=== PATIENT | female | born 1960 | race Caucasian/White ===

== ENCOUNTER 2017-12-21 21:36 | Emergency (ER) | payer OTHER ==
[~2017-12-21] VITALS: Ht 172.7 cm; Wt 82.6 kg
--- NOTE | 2017-12-21 21:36 | NUR ---
BBSELF FROM HOME C/C BRONCHITIS [id number], COMPLETED ZPACK 2.5 WEEKS AGO. VSS SAUD CUTE DISRTESS NOTED AT THIS TIME. A/OX3 ABLE TO MAKE NEEDS KNOWN. SKIN INTACT AND WARM. WILL CONTINUE TO MONITOR FOR ANY CHANGES DURING THE SHIFT.
--- NOTE | 2017-12-21 21:37 | NUR ---
ER MD MARTINEZ AT BEDSIDE
[2017-12-21] MEDS ORDERED: predniSONE 20 MG TABLET PO ONE (22:30)
[2017-12-21] MEDS ORDERED: LEVOFLOXACIN 750 MG /D5W 150ML 150 ML IV ONE (23:00)
[2017-12-21] MEDS ORDERED: AZITHROMYCIN 250 MG TABLET PO ONE (23:00)
[2017-12-21] MEDS ORDERED: PIPERACILLIN /TAZOBACTAM 3.375 G in IV D5W 50 ML IV ONE (23:30)
[2017-12-21] MEDS ORDERED: predniSONE 20 MG TABLET ONE (23:41)
[2017-12-21] MEDS ORDERED: PIPERACILLIN /TAZOBACTAM 3.375 G VIAL IV ONE (23:41)
[2017-12-21 23:46] LABS: BASOPHILS # (AUTO) 0.1 /CMM (0.0-0.2); BASOPHILS % (AUTO) 0.6 % (0.0-2.0); EOSINOPHILS % (AUTO) 2.1 % (0.0-6.0); HEMATOCRIT 41 % (33-45); HEMOGLOBIN 13.6 g/dL (11.5-14.8); LYMPHOCYTES # (AUTO) 1.6 /CMM (0.8-4.8); LYMPHOCYTES % (AUTO) 17.6 % (20.0-44.0); MEAN CORPUSCULAR HEMOGLOBIN 30 PG (26.0-33.0); MEAN CORPUSCULAR HGB CONC 33 g/dl (31.0-36.0); MEAN CORPUSCULAR VOLUME 91 fL (82-100); MONOCYTES # (AUTO) 0.6 /CMM (0.1-1.30); NEUTROPHILS # (AUTO) 6.5 /CMM (1.8-8.9); NEUTROPHILS % (AUTO) 72.7 % (43.0-81.0); PLATELET COUNT (AUTO) 367 /CMM (150-450); RDW COEFFICIENT OF VARIATION 12.7 (11.5-15.0); RED BLOOD CELL COUNT(AUTO) 4.53 MIL/uL (4.0-5.2); WHITE BLOOD COUNT (AUTO) 8.9 K/uL (4.3-11.0)
[2017-12-21 23:55] LABS: CALCIUM, SERUM 9.9 mg/dL (8.5-10.1); CARBON DIOXIDE 27 mmol/L (21-32); CHLORIDE 100 mmol/L (98-107); CREATININE 0.7 mg/dL (0.6-1.3); GLUCOSE 97 mg/dL (74-106); POTASSIUM 3.7 mmol/L (3.5-5.1); SODIUM SERUM 137 mmol/L (136-145); UREA NITROGEN, BLOOD 14 mg/dL (7-18)
[2017-12-22 00:04] VITALS: BP 119/78
[2017-12-22 00:04] LABS: TROPONIN I < 0.017 ng/mL (0.00-0.056)
[2017-12-22 00:08] LABS: ALANINE AMINOTRANSFERASE 16 U/L (12-78); ALBUMIN 3.9 g/dL (3.4-5.0); ALKALINE PHOSPHATASE 89 U/L (46-116); ASPARTATE AMINOTRANSFERASE 12 U/L (15-37); B-TYPE NATRIURETIC PEPTIDE 97 PG/ML (0-125); BILIRUBIN,DIRECT 0.2 mg/dL (0.0-0.2); TOTAL PROTEIN, SERUM 8.3 g/dL (6.4-8.2)
[2017-12-23] MEDS ORDERED: ASPI-1169 PO (02:42)
[2017-12-23] MEDS ORDERED: GLIP10TA11 PO (02:42)
[2017-12-23] MEDS ORDERED: SITA100T PO (02:42)
[2017-12-23] MEDS ORDERED: METF10004 PO (02:42)
[2017-12-23] MEDS ORDERED: ATOR80TA PO (02:42)
[2017-12-23] MEDS ORDERED: CITA10TA17 PO (02:42)
[2017-12-23] MEDS ORDERED: CARV3.12 PO (07:46)
[2017-12-23] MEDS ORDERED: LISI10TA5 PO (07:46)
== END 2017-12-22 00:04 | disposition home or self-care (01) ==
LOC: ER 21:40
DX: J18.1 Lobar pneumonia, unspecified organism (principal); I10 Essential (primary) hypertension; I25.2 Old myocardial infarction; E11.9 Type 2 diabetes mellitus without complications; Z88.5 Allergy status to narcotic agent; Z88.8 Allergy status to other drugs, medicaments and biological substances; Z87.891 Personal history of nicotine dependence
CPT/HCPCS: 36415; 71045; 80048; 80076; 83880; 84484; 85025; 87040 ×2; 93005; 96365; 99285; A4606; J2543 ×2; J7060; J7512; Z7610

== ENCOUNTER 2017-12-22 21:06 | Inpatient (IN) | payer OTHER ==
[~2017-12-22] VITALS: Ht 172.7 cm; Wt 82.6 kg
[2017-12-23] MEDS ORDERED: IOHEXOL-350 100 ML VIAL IV ONE (00:15)
[2017-12-23] MEDS ORDERED: IV NS 0.9% 250 ML IV ONE (00:16)
--- NOTE | 2017-12-23 00:17 | NUR ---
PT WAS SEEN YESTERDAY AND DX WITH PNEUMONIA. PT TOLD TO GET CT AND ANTIBIOTICS. PT IS AAOX4. NAD NOTED. PT DENIES SOB, NVD. WAITING FOR MD DE DIOS
--- NOTE | 2017-12-23 00:20 | NUR ---
INITIATED IV RIGHT UPPER ARM 18G. PLACED ON SALINE LOCK
--- NOTE | 2017-12-23 00:28 | NUR ---
PT BROUGHT BY RADIOLOGIST FOR CT
[2017-12-23] MEDS ORDERED: PIPERACILLIN /TAZOBACTAM 3.375 G in IV D5W 50 ML IV ONE (00:30)
--- NOTE | 2017-12-23 00:45 | NUR ---
PT RETURNED FROM CT
[2017-12-23] MEDS ORDERED: PIPERACILLIN /TAZOBACTAM 3.375 G VIAL IV ONE ×2 (01:21→05:22)
[2017-12-23] MEDS ORDERED: IV NS 0.9% 1,000 ML IV PRN (02:19)
[2017-12-23] MEDS ORDERED: Z GUARD REMEDY 2 OZ OINT TP PRN (02:30)
[2017-12-23] MEDS ORDERED: MAG HYDROX/AL HYDROX/SIMETH 30 ML UDC PO PRN (02:30)
[2017-12-23] MEDS ORDERED: HYDROCODONE/APAP 5/325MG 1 EACH TABLET PO PRN (02:30)
[2017-12-23] MEDS ORDERED: MAGNESIUM HYDROXIDE 30 ML UDC PO PRN (02:30)
[2017-12-23] MEDS ORDERED: ONDANSETRON HCL/PF 4 MG/2 ML VIAL IVP PRN (02:30)
--- NOTE | 2017-12-23 02:33 | NUR ---
GAVE REPORT TO KRYS FOR CARI
[2017-12-23] MEDS ORDERED: ASPI-1169 PO (02:42)
[2017-12-23] MEDS ORDERED: GLIP10TA11 PO (02:42)
[2017-12-23] MEDS ORDERED: SITA100T PO (02:42)
[2017-12-23] MEDS ORDERED: METF-442 PO (02:42)
[2017-12-23] MEDS ORDERED: ATOR80TA PO (02:42)
[2017-12-23] MEDS ORDERED: CITA10TA17 PO (02:42)
[2017-12-23 03:00] VITALS: BP 102/62
--- NOTE | 2017-12-23 03:08 | NUR ---
TRANSFERRED PT TO TELE PER [facility] [employer]
[2017-12-23 03:30] VITALS: BP 102/62
[2017-12-23 04:00] VITALS: BP 115/62
[2017-12-23] MEDS: PIPERACILLIN /TAZOBACTAM 3.375 G in IV D5W 50 ML IV SCH ×4 (06:27→23:22)
[2017-12-23 07:06] LABS: ALBUMIN 3.3 g/dL (3.4-5.0); BILIRUBIN,DIRECT 0.1 mg/dL (0.0-0.2); BILIRUBIN,TOTAL 0.5 mg/dL (0.2-1.0); CALCIUM, SERUM 8.6 mg/dL (8.5-10.1); CREATININE 0.9 mg/dL (0.6-1.3); MAGNESIUM 1.9 mg/dL (1.8-2.4); PHOSPHORUS 4.2 mg/dL (2.5-4.9); POTASSIUM 3.7 mmol/L (3.5-5.1)
[2017-12-23 07:17] LABS: THYROID STIMULATING HORMONE 5.379 uIU/mL (0.358-3.74)
[2017-12-23 07:27] LABS: INR 0.92 (0.87-1.13)
[2017-12-23] MEDS ORDERED: LISI10TA5 PO (07:46)
[2017-12-23] MEDS ORDERED: CARV3.12 PO (07:46)
[2017-12-23 08:00] VITALS: BP 92/60
[2017-12-23 08:02] LABS: BASOPHILS % (AUTO) 0.3 % (0.0-2.0); EOSINOPHILS % (AUTO) 1.2 % (0.0-6.0); HEMATOCRIT 38 % (33-45); LYMPHOCYTES # (AUTO) 1.5 /CMM (0.8-4.8); LYMPHOCYTES % (AUTO) 19.3 % (20.0-44.0); MEAN CORPUSCULAR HEMOGLOBIN 29 PG (26.0-33.0); MEAN CORPUSCULAR HGB CONC 32 g/dl (31.0-36.0); MEAN CORPUSCULAR VOLUME 91 fL (82-100); MONOCYTES # (AUTO) 0.6 /CMM (0.1-1.30); MONOCYTES % (AUTO) 8.3 % (2.0-12.0); NEUTROPHILS # (AUTO) 5.5 /CMM (1.8-8.9); NEUTROPHILS % (AUTO) 70.9 % (43.0-81.0); PLATELET COUNT (AUTO) 310 /CMM (150-450); RDW COEFFICIENT OF VARIATION 12.9 (11.5-15.0); RED BLOOD CELL COUNT(AUTO) 4.15 MIL/uL (4.0-5.2); WHITE BLOOD COUNT (AUTO) 7.8 K/uL (4.3-11.0)
--- NOTE | 2017-12-23 08:06 | NUR ---
LEFT MESSAGE FOR DOCTOR SAVANNAH CONSULT WITH ANSWERING SERVICE. ISAIAS PENA RN
--- NOTE | 2017-12-23 08:09 | NUR ---
LEFT MESSAGE WITH DOCTOR CÉSAR'S OFFICE FOR CONSULT.
[2017-12-23] MEDS: PANTOPRAZOLE 40 MG TABLET.DR PO SCH (09:05)
[2017-12-23] MEDS ORDERED: *INSULIN REGULAR(HUMULIN R)HUM 100 UNIT/ML VIAL SQ PRN (11:00)
[2017-12-23] MEDS ORDERED: DEXTROSE 50%-WATER 50 ML DISP.SYRIN IV PRN ×2 (11:00)
[2017-12-23] MEDS ORDERED: LORAZEPAM 1 MG TABLET PO PRN (11:00)
[2017-12-23] MEDS ORDERED: INSULIN REGULAR, HUMAN 100 UNIT/ML 3 ML VIAL SQ PRN (11:00)
[2017-12-23] MEDS: BLOOD SUGAR DIAGNOSTIC 1 EACH STRIP VI SCH ×3 (11:53→23:30)
[2017-12-23] MEDS: INSULIN REGULAR, HUMAN 100 UNIT/ML 3 ML VIAL SQ PRN (11:57)
[2017-12-23] MEDS ORDERED: BLOOD SUGAR DIAGNOSTIC 1 EACH STRIP VI SCH (12:00)
[2017-12-23 16:02] VITALS: BP 102/68
[2017-12-23] MEDS: METFORMIN 500 MG TABLET PO SCH (17:00)
[2017-12-23] MEDS: ACETAMINOPHEN 325 MG TABLET PO PRN (17:37)
[2017-12-23] MEDS: CARVEDILOL 3.125 MG TABLET PO SCH (17:37)
--- NOTE | 2017-12-23 19:10 | NUR ---
Handoff to night nurse, discussed plan for discharge 12/24/17.
--- NOTE | 2017-12-23 19:30 | NUR ---
MS/RN RECEIVE PATIENT AWAKE, ALERT, ORIENTED, COMFORTABLE, NO C/O PAIN, NO DISTRESS NOTED, PLAN OF CARE DISCUSSED, VERBALIZED UNDERSTANDING, CALL LIGHT IN REACH. WILL MONITOR.
[2017-12-23 20:00] VITALS: BP 104/61
--- NOTE | 2017-12-24 01:22 | NUR ---
MS/RN PATIENT IS SLEEPING, AROUSABLE, APPEAR COMFORTABLE, NO DISTRESS NOTED, ALL NEEDS ATTENDED AT THIS TIME, ENDORSED TO NEXT RN FOR CONTINUITY OF CARE.
--- NOTE | 2017-12-24 01:31 | NUR ---
MS RN NOTES REPORT RECEIVED FROM STEWART. PT IN BED COMFORTABLY SLEEPING AND AROUSABLE, NO S/S OF PAIN OR DISTRESS NOTED, ALL NEEDS ATTENDED TO AT THIS TIME, WILL CONTINUE TO MONITOR
[2017-12-24] MEDS: PIPERACILLIN /TAZOBACTAM 3.375 G in IV D5W 50 ML IV SCH ×3 (05:23→17:33)
[2017-12-24] MEDS: ACETAMINOPHEN 325 MG TABLET PO PRN ×2 (05:53→22:04)
--- NOTE | 2017-12-24 06:00 | NUR ---
MS RN CLOSING NOTES PT IN BED AT LOWEST AND LOCKED POSITION WITH SIDE RAILS UP X2 RESTING COMFORTABLY, A/O X3, NO S/S OF PAIN OR DISTRESS NOTED, RIGHT FA IV REMOVED AND REPLACED WITH LEFT HAND IV THAT IS PATENT AND INTACT RUNNING IVF, RECENTLY GIVEN TYELNOL AT 0553, SAFETY PRECAUTIONS IN PLACE, ALL NEEDS ATTEDED TO, CALL LIGHT WITHIN REACH, WILL CONTINUE TO MONITOR
--- NOTE | 2017-12-24 07:15 | NUR ---
MSRN OPENING NOTES. PT RECEIVED A&0X3, TOLERATING ROOM AIR WITHOUT RESPIRATORY DISTRESS. PT DENIES PAIN. PT WITH IVC AT L HAND G#22 SALINE FLUSH PATENT. PT BED IN LOWEST LOCKED POSITION WITH HANDRAILSX2 AND CALL LOUIE WITHIN REACH. PT BRIEFED ON TODAY'S POC AND IS WITHOUT CONCERN OR COMPLAIN AT THIS TIME.
[2017-12-24 07:29] LABS: CALCIUM, SERUM 9.1 mg/dL (8.5-10.1); CREATININE 0.8 mg/dL (0.6-1.3); MAGNESIUM 1.8 mg/dL (1.8-2.4); PHOSPHORUS 4.4 mg/dL (2.5-4.9); POTASSIUM 3.9 mmol/L (3.5-5.1)
[2017-12-24] MEDS: PANTOPRAZOLE 40 MG TABLET.DR PO SCH (07:30)
[2017-12-24 07:31] LABS: EOSINOPHILS % (AUTO) 7.4 % (0.0-6.0); HEMATOCRIT 36 % (33-45); HEMOGLOBIN 11.9 g/dL (11.5-14.8); LYMPHOCYTES # (AUTO) 1.2 /CMM (0.8-4.8); LYMPHOCYTES % (AUTO) 16.9 % (20.0-44.0); MEAN CORPUSCULAR HEMOGLOBIN 31 PG (26.0-33.0); MEAN CORPUSCULAR HGB CONC 33 g/dl (31.0-36.0); MEAN CORPUSCULAR VOLUME 92 fL (82-100); MONOCYTES # (AUTO) 0.4 /CMM (0.1-1.30); MONOCYTES % (AUTO) 6.1 % (2.0-12.0); NEUTROPHILS % (AUTO) 69.6 % (43.0-81.0); PLATELET COUNT (AUTO) 269 /CMM (150-450); RDW COEFFICIENT OF VARIATION 12.9 (11.5-15.0); WHITE BLOOD COUNT (AUTO) 7.2 K/uL (4.3-11.0)
[2017-12-24 08:00] VITALS: BP 118/72
[2017-12-24] MEDS: METFORMIN 500 MG TABLET PO SCH ×2 (09:00→17:00)
[2017-12-24] MEDS: CARVEDILOL 3.125 MG TABLET PO SCH ×2 (09:58→16:59)
[2017-12-24] MEDS: CITALOPRAM HYDROBROMIDE 10 MG TABLET PO SCH (10:00)
[2017-12-24] MEDS: BLOOD SUGAR DIAGNOSTIC 1 EACH STRIP VI SCH ×4 (10:06→22:05)
[2017-12-24] MEDS: LISINOPRIL (10MG) 10 MG TABLET PO SCH (10:06)
[2017-12-24] MEDS: INSULIN REGULAR, HUMAN 100 UNIT/ML 3 ML VIAL SQ PRN ×3 (11:00→21:56)
[2017-12-24 16:00] VITALS: BP 112/71
[2017-12-24] MEDS: FERROUS SULFATE (325 MG) 325 MG/TAB TABLET PO SCH (17:32)
[2017-12-24] MEDS: ATORVASTATIN 40 MG TABLET PO SCH (17:32)
--- NOTE | 2017-12-24 18:37 | NUR ---
MSRN CLOSING NOTES. PT REMAINS A&0X3, TOLERATING ROOM AIR WITHOUT RESPIRATORY DISTRESS. PT DENIES PAIN. PT WITH IVC AT L HAND G#22 SALINE FLUSH PATENT. PT TO BHE NPO FROM MIDNIGHT R/T PROCEDURE. PT BED IN LOWEST LOCKED POSITION WITH HANDRAILSX2 AND CALL LOIUE WITHIN REACH. ALL DAY NURSE DUTIES ATTENDED TO AND PT IS WITHOUT CONCERN OR COMPLAIN AT THIS TIME. WILL ENDORSE TO NIGHT NURSE AT BEDSIDE FOR CARI.
--- NOTE | 2017-12-24 19:25 | NUR ---
rn ms opening notes received patient in room/bed, awake alert and oriented x3-4,respirations even and unlabored with equal rise and fall of chest , denies any sob at this time, o2 offered patient does not feel she needs it at this time, spo2 wnl denies any pain or discomfort at this time, no apparent distress present, iv site to left hand #22 sl. noted intact and patent, no redness, no infiltration present. oriented to staff and call light, call light kept within reach, safety precautions in place bed low and locked, consents signed by patient for procedure on 12/25/17. patient aware of npo status. fluids/snacks offered. all needs attended at this time, patient request to have door closed, will continue to monitor.
[2017-12-24 20:00] VITALS: BP 111/71
--- NOTE | 2017-12-24 22:04 | NUR ---
rn ms notes patient complaint of pain to chest area patient states " pain because of pna,cough " pain medication offered , patient agreed to take tylenol prn given and ordered will continue to monitor. blood sugar of 142 2 units given as per sliding scale snack provided patient seems to be worried about decrease in blood sugar and npo status at midnight orange sugar free jello, strawberry jello, oj, and applesauce offered and at bedside. patient states " she ate almonds". will continue to monitor for any changes.
[2017-12-24] MEDS: *INSULIN REGULAR(HUMULIN R)HUM 100 UNIT/ML VIAL SQ PRN (22:43)
--- NOTE | 2017-12-24 22:45 | NUR ---
rn ms notes clarification of barcode for insulin undid ac and rescanned hs dose 142 blood sugar 2 units per sliding scale.
[2017-12-25] MEDS: PIPERACILLIN /TAZOBACTAM 3.375 G in IV D5W 50 ML IV SCH ×5 (00:20→23:15)
[2017-12-25] MEDS: ALBUTEROL FS 2.5 MG/0.5 ML VIAL.NEB NEB PRN ×2 (02:46→16:09)
--- NOTE | 2017-12-25 02:46 | NUR ---
rn ms notes patient had episode of cough with scant amount of clear sputum , offered albuterol patient agreed. rt called for treatment will continue to monitor
--- NOTE | 2017-12-25 03:15 | NUR ---
rn ms notes noted albuterol rt tx effective, cough is relived, per patient states she feels better.
--- NOTE | 2017-12-25 04:35 | NUR ---
rn ms notes inactivated sepsis reassessment patient was admitted for acute respiratory failure and PNA, metastatic lung cancer. assessed orders no fluids for sepsis given
[2017-12-25] MEDS: BLOOD SUGAR DIAGNOSTIC 1 EACH STRIP VI SCH ×4 (06:28→22:00)
--- NOTE | 2017-12-25 06:29 | NUR ---
rn ms notes blood sugar taken 141, no insulin given patient currently is npo for am procedure.
--- NOTE | 2017-12-25 07:08 | NUR ---
RN OPENING NOTES RECEIVED PATIENT IN BED RESTING, A/OX3, ABLE TO VERBALIZE NEEDS. NO ACUTE DISTRESS, NO SOB NOTED. DENIED PAIN OR DISCOMFORT AT THIS TIME. KEPT NPO DUE TO A SCHEDULED PROCEDURE FOR TODAY. KEPT PATIENT SAFE AND COMFORTABLE. BED IN LOW/LOCKED POSITION, SIDERAILS UPX2, CALL LIGHT IN REACH. BRIEFED ON TODAY'S POC. WILL CONTINUE TO MONIOTR ACCORDINGLY.
--- NOTE | 2017-12-25 07:30 | NUR ---
rn ms closing notes patient in bed awake alert and oriented x 4, respirations even and unlabored with equal rise and fall of chest , denies any pain or discomfort at this, noted iv site to left hand not patent, noted with slight swelling, no redness to site. site removed,applied ice and elevated, attempted to insert x 2, endorse to next shift to continue remaining iv zosyn, and insert new iv site. all needs attended, call light kept within reach, npo for scheduled procedure.
[2017-12-25 07:54] LABS: INR 0.96 (0.87-1.13)
[2017-12-25 08:00] VITALS: BP_SYST 119; BP_DIAS 57; BP_DIAS 67
--- NOTE | 2017-12-25 08:00 | NUR ---
RN NOTES NEW IV ON RIGHT FOREARM GAUGE 24,INTACT AND PATENT. INSERTED BY ROSANNE WELCH
[2017-12-25] MEDS: METFORMIN 500 MG TABLET PO SCH ×2 (09:00→17:00)
[2017-12-25] MEDS: PANTOPRAZOLE 40 MG TABLET.DR PO SCH (09:16)
[2017-12-25] MEDS: CARVEDILOL 3.125 MG TABLET PO SCH ×2 (09:17→17:34)
[2017-12-25] MEDS: CITALOPRAM HYDROBROMIDE 10 MG TABLET PO SCH (09:17)
[2017-12-25] MEDS: FERROUS SULFATE (325 MG) 325 MG/TAB TABLET PO SCH ×2 (09:18→17:30)
[2017-12-25] MEDS: LISINOPRIL (10MG) 10 MG TABLET PO SCH (09:18)
[2017-12-25] MEDS: ACETAMINOPHEN 325 MG TABLET PO PRN ×2 (09:22→09:27)
--- NOTE | 2017-12-25 13:00 | NUR ---
RN NOTES CT NEEDLE BIOPSY WAS CANCELLED PER DR LINDSEY. PER DR LINDSEY, FOLLOW UP WITH OUTSIDE SALES PROFESSIONAL FOR BRONCHOSCOPY. NOTIFIED [employer].
[2017-12-25 16:00] VITALS: BP 122/77
[2017-12-25] MEDS: ATORVASTATIN 40 MG TABLET PO SCH (17:31)
[2017-12-25] MEDS: INSULIN REGULAR, HUMAN 100 UNIT/ML 3 ML VIAL SQ PRN (17:36)
--- NOTE | 2017-12-25 19:10 | NUR ---
RN INITIAL NOTES Received patient, AA/OX4, on supine position, with patent peripheral IV line RFA G#24 SL. No s/s of discomfort made. Able to communicate needs. Kept door close per patient request. Will monitor accordingly.
--- NOTE | 2017-12-25 19:45 | NUR ---
RN CLOSING NOTES PATIENT IN STABLE CONDITION. ALL NEEDS ATTENDED AND PROVIDED. ALL DUE MEDS GIVEN ORDERED. KEPT PATIENT SAFE AND COMFORTABLE. BED IN LOW/LOCKED POSITION, CALL LIGHT IN REACH. ENDORSED TO NIGHT RN FOR CARI.
[2017-12-25 20:00] VITALS: BP 112/64
--- NOTE | 2017-12-25 22:00 | NUR ---
MS RN NOTES Routine capillary blood sugar checked, 198mg/dl. Patient claimed she had snacks few minutes ago and she eats small frequent meals. Patient refused to take insulin as she claimed the blood sugar result is not accurate due to her eating anytime she wants. Explained the risk of not taking insulin and the timing of blood sugar checked. Patient verbalized understanding but insist to refused insulin at this time. Will continue to monitor accordingly.
[2017-12-26] MEDS: PIPERACILLIN /TAZOBACTAM 3.375 G in IV D5W 50 ML IV SCH ×3 (05:03→17:18)
[2017-12-26] MEDS: PANTOPRAZOLE 40 MG TABLET.DR PO SCH (06:34)
[2017-12-26] MEDS: BLOOD SUGAR DIAGNOSTIC 1 EACH STRIP VI SCH ×4 (06:35→22:16)
--- NOTE | 2017-12-26 06:46 | NUR ---
MS RN CLOSING NOTES Patient awake on left side lying position. With patent peripheral IV line RF G#24, SL, no signs of infiltration noted. Able to ambulate and do ADLs independently. Patient claimed she had intermittent slept the whole night. Capillary blood glucose check at this time, 145mg/dl, refused to take insulin, per patient its not that high and she will have oral diabetic meds soon. All due meds given, no ASE noted. Kept comfortable, all needs attended. No new complaints made. Endorsed to the next shift.
--- NOTE | 2017-12-26 07:30 | NUR ---
MS RN OPENING NOTES RECEIVED PT SITTING UPRIGHT IN BED. PT IS A/O X4, AFEBRILE. RESPIRATIONS ARE EVEN AND UNLABORED, NOT IN ANY ACUTE DISTRESS AT THIS TIME. PT DENIES SOB, N/V. IV SITE INTACT TO RFA, NO INFILTRATION NOTED. DRESSING KEPT CLEAN AND DRY. SAFETY MEASURES ARE IN PLACE. INSTRUCTED PT TO USE CALL LIGHT WHEN ASSISTANCE IS NEEDED, CALL LIGHT IS LEFT WITHIN REACH. WILL CONTINUE TO MONITOR THROUGHOUT SHIFT FOR CONTINUITY OF CARE
[2017-12-26 08:00] VITALS: BP_SYST 104; BP_SYST 109; BP_DIAS 70
[2017-12-26 08:11] LABS: CALCIUM, SERUM 9.1 mg/dL (8.5-10.1); CREATININE 0.8 mg/dL (0.6-1.3); MAGNESIUM 1.7 mg/dL (1.8-2.4); PHOSPHORUS 3.6 mg/dL (2.5-4.9); POTASSIUM 3.8 mmol/L (3.5-5.1)
[2017-12-26] MEDS: CITALOPRAM HYDROBROMIDE 10 MG TABLET PO SCH (08:42)
[2017-12-26] MEDS: FERROUS SULFATE (325 MG) 325 MG/TAB TABLET PO SCH ×2 (08:42→17:13)
[2017-12-26] MEDS: CARVEDILOL 3.125 MG TABLET PO SCH ×2 (08:43→17:00)
[2017-12-26] MEDS: LISINOPRIL (10MG) 10 MG TABLET PO SCH (08:43)
[2017-12-26] MEDS: METFORMIN 500 MG TABLET PO SCH ×2 (08:45→17:00)
[2017-12-26 09:05] LABS: HEMATOCRIT 37 % (33-45); HEMOGLOBIN 13.1 g/dL (11.5-14.8); LYMPHOCYTES % (AUTO) 15.1 % (20.0-44.0); MEAN CORPUSCULAR HEMOGLOBIN 31 PG (26.0-33.0); MEAN CORPUSCULAR HGB CONC 36 g/dl (31.0-36.0); MEAN CORPUSCULAR VOLUME 87 fL (82-100); MONOCYTES % (AUTO) 7.1 % (2.0-12.0); NEUTROPHILS % (AUTO) 75.3 % (43.0-81.0); PLATELET COUNT (AUTO) 287 /CMM (150-450); RDW COEFFICIENT OF VARIATION 12.7 (11.5-15.0); RED BLOOD CELL COUNT(AUTO) 4.25 MIL/uL (4.0-5.2); WHITE BLOOD COUNT (AUTO) 7.3 K/uL (4.3-11.0)
[2017-12-26 09:06] LABS: BASOPHILS % (AUTO) 0.5 % (0.0-2.0)
--- NOTE | 2017-12-26 09:30 | NUR ---
PT SEEN AND EXAMINED BY DR. NUÑEZ W/ ORDERS FOR SCHEDULED BRONCOSCOPY ON MONDAY AT 2PM. PT MADE AWARE. PT WILL BE NPO POST MIDNIGHT (MONDAY NIGHT) AND START D5NS @80ML/HR POST MIDNIGHT. ORDERS READ BACK AND VERIFIED. NOTED AND CARRIED OUT.
[2017-12-26] MEDS ORDERED: Magnesium 1GM/D5W 100ML PREMIX 100 ML IV SCH (10:00)
[2017-12-26] MEDS: Magnesium 1GM/D5W 100ML PREMIX 100 ML IV SCH ×2 (10:30→11:33)
[2017-12-26] MEDS: INSULIN REGULAR, HUMAN 100 UNIT/ML 3 ML VIAL SQ PRN ×2 (11:47→17:16)
[2017-12-26] MEDS: ALBUTEROL FS 2.5 MG/0.5 ML VIAL.NEB NEB PRN (15:59)
[2017-12-26 16:00] VITALS: BP 98/65
[2017-12-26] MEDS: ATORVASTATIN 40 MG TABLET PO SCH (17:13)
--- NOTE | 2017-12-26 18:40 | NUR ---
MS RN CLOSING NOTES ALL DUE MEDS GIVEN, NEEDS MET AND RENDERED. PT IS A/O X4, AFEBRILE. RESPIRATIONS ARE EVEN AND UNLABORED, NOT IN ANY ACUTE DISTRESS NOTED. PT DENIES ANY PAIN AT THIS TIME. NO C/O SOB, N/V. IV SITE INTACT, NO INFILTRATION NOTED. DRESSING KEPT CLEAN AND DRY. PT ABLE TO AMBULATE AROUND FLOOR FOR EXERCISE. SAFETY MEASURES ARE IN PLACE. REMINDED PT TO USE CALL LIGHT WHEN ASSISTANCE IS NEEDED, CALL LIGHT IS LEFT WITHIN REACH. WILL ENDORSE TO NEXT SHIFT FOR CONTINUITY OF CARE.
--- NOTE | 2017-12-26 19:35 | NUR ---
MS RN OPENING NOTES RECEIVED PT SITTING UPRIGHT IN BED. PT IS A/O X4, AFEBRILE. RESPIRATION EVEN AND UNLABORED, NOT IN ANY ACUTE DISTRESS AT THIS TIME. PT DENIES SOB, NO O2 NEEDED AT THIS TIME. IV SITE INTACT TO RFA, SL, NO INFILTRATION NOTED. DRESSING KEPT CLEAN AND DRY. SAFETY MEASURES ARE IN PLACE. INSTRUCTED PT TO USE CALL LIGHT WHEN ASSISTANCE IS NEEDED, VERBALIZED UNDERSTANDING. CALL LIGHT IS LEFT WITHIN REACH. WILL CONTINUE TO MONITOR THROUGHOUT SHIFT FOR CONTINUITY OF CARE
[2017-12-26 20:00] VITALS: BP 109/67
[2017-12-26] MEDS: ACETAMINOPHEN 325 MG TABLET PO PRN (20:27)
--- NOTE | 2017-12-26 20:27 | NUR ---
PRN TYLENOL GIVEN PT C/O GENERALIZED BODY ACHE & ASKED TO GET TYLENOL. PRN TYLENOL GIVEN ORDERED. WILL MONITOR FOR EFFECTIVENESS.
[2017-12-26 20:37] VITALS: BP 109/67
[2017-12-26] MEDS: ALBUTEROL FS 2.5 MG/0.5 ML VIAL.NEB NEB SCH ×2 (21:01→23:30)
--- NOTE | 2017-12-26 22:18 | NUR ---
REFUSED INSULIN PT'S BLOOD SUGAR NOTED TO BE 178MG/DL, PT STATED SHE IS NEW TO INSULIN & HAS BEEN TAKING PO MEDS ONLY FOR HER BLOOD SUGAR LEVELS. PATIENT REFUSED TO TAKE INSULIN AT THIS TIME STATING THAT SINCE HER BS IS NOT TOO HIGH & SHE WOULD NOT BE SNACKING @ NIGHT, SHE DOES NOT WANT TO TAKE INSULIN AT THIS TIME. WILL RECHECK HER BS IN AM & WILL ADMINISTER INSULIN ACCORDINGLY.
[2017-12-27] MEDS: PIPERACILLIN /TAZOBACTAM 3.375 G in IV D5W 50 ML IV SCH ×5 (00:28→23:51)
--- NOTE | 2017-12-27 01:32 | NUR ---
MS RN NOTE PT IS SLEEPING COMFORTABLY AT THIS TIME. NO ACUTE CHANGES NOTED. MONITORING CLOSELY.
[2017-12-27] MEDS: BLOOD SUGAR DIAGNOSTIC 1 EACH STRIP VI SCH ×4 (06:32→22:23)
--- NOTE | 2017-12-27 06:44 | NUR ---
MS RN CLOSING NOTES PATIENT SLEPT WELL @ NIGHT. PT IS A/O X4, AFEBRILE. RESPIRATIONS ARE EVEN AND UNLABORED, NOT IN ANY ACUTE DISTRESS NOTED. PT DENIES ANY PAIN AT THIS TIME. NO C/O SOB, N/V. IV SITE TO RFA, INTACT & PATENT. NO INFILTRATION NOTED. DRESSING KEPT CLEAN AND DRY. PT ABLE TO AMBULATE TO THE BATHROOM. BED IN LOW LOCKED POSITION. SAFETY MEASURES IN PLACE. CALL LIGHT WITHIN REACH. WILL ENDORSE TO NEXT SHIFT FOR CONTINUITY OF CARE.
[2017-12-27 07:40] LABS: CALCIUM, SERUM 8.9 mg/dL (8.5-10.1); CREATININE 0.7 mg/dL (0.6-1.3); PHOSPHORUS 3.7 mg/dL (2.5-4.9); POTASSIUM 3.7 mmol/L (3.5-5.1)
[2017-12-27 07:42] LABS: BASOPHILS % (AUTO) 0.5 % (0.0-2.0); EOSINOPHILS % (AUTO) 2.8 % (0.0-6.0); HEMATOCRIT 37 % (33-45); HEMOGLOBIN 12.3 g/dL (11.5-14.8); LYMPHOCYTES % (AUTO) 17.3 % (20.0-44.0); MEAN CORPUSCULAR HEMOGLOBIN 30 PG (26.0-33.0); MEAN CORPUSCULAR HGB CONC 34 g/dl (31.0-36.0); MEAN CORPUSCULAR VOLUME 89 fL (82-100); MONOCYTES # (AUTO) 0.4 /CMM (0.1-1.30); MONOCYTES % (AUTO) 7.3 % (2.0-12.0); NEUTROPHILS % (AUTO) 72.1 % (43.0-81.0); PLATELET COUNT (AUTO) 277 /CMM (150-450); RED BLOOD CELL COUNT(AUTO) 4.08 MIL/uL (4.0-5.2); WHITE BLOOD COUNT (AUTO) 5.6 K/uL (4.3-11.0)
[2017-12-27] MEDS: ALBUTEROL FS 2.5 MG/0.5 ML VIAL.NEB NEB SCH ×5 (07:49→22:45)
[2017-12-27 08:00] VITALS: BP 120/64
[2017-12-27] MEDS: FERROUS SULFATE (325 MG) 325 MG/TAB TABLET PO SCH ×2 (09:06→17:45)
[2017-12-27] MEDS: CITALOPRAM HYDROBROMIDE 10 MG TABLET PO SCH (09:06)
[2017-12-27] MEDS: PANTOPRAZOLE 40 MG TABLET.DR PO SCH (09:07)
[2017-12-27] MEDS: LISINOPRIL (10MG) 10 MG TABLET PO SCH (09:07)
[2017-12-27] MEDS: CARVEDILOL 3.125 MG TABLET PO SCH ×2 (09:07→17:45)
[2017-12-27] MEDS: METFORMIN 500 MG TABLET PO SCH ×2 (09:18→17:45)
[2017-12-27] MEDS: ACETAMINOPHEN 325 MG TABLET PO PRN (09:24)
[2017-12-27] MEDS: *INSULIN REGULAR(HUMULIN R)HUM 100 UNIT/ML VIAL SQ PRN ×2 (11:56→22:13)
[2017-12-27 16:00] VITALS: BP 102/62
[2017-12-27] MEDS: ATORVASTATIN 40 MG TABLET PO SCH (17:45)
--- NOTE | 2017-12-27 19:30 | NUR ---
MS RN OPENING NOTES RECEIVED P IN BED. A/O X4, AFEBRILE. RESPIRATION EVEN AND UNLABORED, NOT IN ANY ACUTE DISTRESS AT THIS TIME. PT DENIES SOB AND PAIN. IV SITE INTACT RFA, NO INFILTRATION NOTED. SAFETY MEASURES ARE IN PLACE. INSTRUCTED PT TO USE CALL LIGHT. CALL LIGHT IS LEFT WITHIN REACH. WILL CONTINUE TO MONITOR.
[2017-12-27 20:00] VITALS: BP 132/71
[2017-12-28] MEDS ORDERED: IV D5/ 0.9% NACL 1,000 ML IV ONE
[2017-12-28] MEDS: ALBUTEROL FS 2.5 MG/0.5 ML VIAL.NEB NEB SCH ×4 (02:38→15:25)
[2017-12-28] MEDS: PIPERACILLIN /TAZOBACTAM 3.375 G in IV D5W 50 ML IV SCH ×2 (06:34→12:15)
[2017-12-28] MEDS: ACETAMINOPHEN 325 MG TABLET PO PRN (06:44)
[2017-12-28] MEDS: PANTOPRAZOLE 40 MG TABLET.DR PO SCH (07:30)
--- NOTE | 2017-12-28 07:33 | NUR ---
MS RN CLOSING NOTES PT IN BED A/O X4. RESPIRATION EVEN AND UNLABORED, NOT IN ANY ACUTE DISTRESS AT THIS TIME. PT DENIES SOB AND PAIN. IV SITE INTACT RFA. SAFETY MEASURES ARE IN PLACE. INSTRUCTED PT TO USE CALL LIGHT. CALL LIGHT IS LEFT WITHIN REACH.PT NPO SINCE MIDNIGHT.WILL ENDORSE TO NEXT SHIFT FOR CARI.
[2017-12-28] MEDS: BLOOD SUGAR DIAGNOSTIC 1 EACH STRIP VI SCH ×3 (07:36→17:38)
--- NOTE | 2017-12-28 07:40 | NUR ---
RN OPENING NOTES PATIENT RECEIVED RESTING COMFORTABLY IN BED, EASILY AROUSABLE DURING CARE, ABLE TO MAKE NEEDS KNOWN. RESPIRATIONS EVEN AND UNLABORED, DENIES ANY PAIN OR DISCOMFORT AT THIS TIME. IV ACCESS TO RFA 24G PATENT AND INTACT NO REDNESS OR INFILTRATION NOTED.SAFETY MEASURES IN PLACE KEPT CLEAN DRY AND COMFORTABLE WILL CONTINUE TO MONITOR. PT NPO AT THIS TIME FOR PROCEDURE, VERBALIZES UNDERSTANDING
[2017-12-28 08:19] VITALS: BP 127/70
[2017-12-28] MEDS: CITALOPRAM HYDROBROMIDE 10 MG TABLET PO SCH (08:50)
[2017-12-28] MEDS: METFORMIN 500 MG TABLET PO SCH ×2 (08:51→17:38)
[2017-12-28] MEDS: FERROUS SULFATE (325 MG) 325 MG/TAB TABLET PO SCH ×2 (08:51→17:38)
[2017-12-28] MEDS: LISINOPRIL (10MG) 10 MG TABLET PO SCH (08:51)
[2017-12-28] MEDS: CARVEDILOL 3.125 MG TABLET PO SCH ×2 (08:51→17:00)
[2017-12-28] MEDS: INSULIN REGULAR, HUMAN 100 UNIT/ML 3 ML VIAL SQ PRN ×2 (11:52→17:37)
[2017-12-28] MEDS ORDERED: HYDR-552 PO (12:28)
[2017-12-28] MEDS ORDERED: AMOX-427 PO (12:28)
[2017-12-28] MEDS ORDERED: PROPOFOL 20 ML IV ONE (14:08)
[2017-12-28] MEDS ORDERED: SUCCINYLCHOLINE CHLORIDE 20 MG/ML VIAL ONE (14:08)
[2017-12-28] MEDS ORDERED: PROPOFOL 100 ML ONE (14:09)
[2017-12-28] MEDS ORDERED: LIDOCAINE 5% OINT 35.44 GM TUBE ONE (14:28)
[2017-12-28] MEDS ORDERED: ALBUTEROL FS 2.5 MG/3 ML VIAL.NEB ONE (15:18)
--- NOTE | 2017-12-28 16:10 | NUR ---
RN NOTES PT BACK FROM OR S/P BRONCHOSCOPY NOTED WITH COUGH VSS, CLARIFIED WITH DR. NUÑEZ REGARDING HYCODON ORDERS DR. NUÑEZ WITH ORDERS FOR MADELINEITUSFELTON DM, WILL CONTINUE TO MONITOR AND CALL DR. NUÑEZ FOR UPDATE AND CLEARANCE FOR DISCHARGE
[2017-12-28 17:00] VITALS: BP 119/69
[2017-12-28] MEDS ORDERED: GUAIFENESIN/D-METHORPHAN HB 5 ML UDC PO PRN (17:00)
[2017-12-28] MEDS: ATORVASTATIN 40 MG TABLET PO SCH (17:38)
--- NOTE | 2017-12-28 17:40 | NUR ---
RN NOTES PT CLEARED BY DR. NUÑEZ FOR DC WELL DR. DUARTE WILL CONTINUE TO ASSIST WITH DC PROCESS, PT S/P BRONCHOSCOPY IN STABLE CONDITION
--- NOTE | 2017-12-28 19:10 | NUR ---
RN CLOSING/DISCHARGE NOTES PATIENT AWAKE ALERT AND VERBALLY RESPONSIVE, ABLE TO MAKE NEEDS. RESPIRATIONS EVEN AND UNLABORED, DENIES ANY PAIN OR DISCOMFORT AT THIS TIME. IV ACCESS TO RFA AND LFA AND ID BAND REMOVED WITH NO ASE NOTED.PATIENT WITH DISCHARGE ORDERS, ALL DISCHARGE ORDERS AND INSTRUCTIONS REVIEWED WITH PT AND FRIEND OKAYED WITH PT, WITH NOTED VERBAL UNDERSTANDING. ALL BELONGINGS ACCOUNTED FOR PT ASSISTED TO LOBBY BY RN IN STABLE CONDITION Addendum: 12/28/17 at 1913 by MARTA ROMEO RN TIME OF DISCHARGE 937
== END 2017-12-28 18:45 | disposition home or self-care (01) | DRG 136 ==
LOC: ER 21:12 → TELE 12-23 02:22 → MED 12-23 09:38
PROVIDERS: ADMIT Registered Nurse; ATTEND Internal Medicine
PROC: 0BBM8ZX Excision of Bilateral Lungs, Via Natural or Artificial Opening Endoscopic, Diagnostic (ICD-10-PCS; principal; 2017-12-28 14:00)
DX: C34.01 Malignant neoplasm of right main bronchus (principal); J15.9 Unspecified bacterial pneumonia; E11.40 Type 2 diabetes mellitus with diabetic neuropathy, unspecified; J90 Pleural effusion, not elsewhere classified; I31.3 Pericardial effusion (noninflammatory); J43.9 Emphysema, unspecified; I25.10 Atherosclerotic heart disease of native coronary artery without angina pectoris; R09.02 Hypoxemia; E78.5 Hyperlipidemia, unspecified; Z88.5 Allergy status to narcotic agent; Z88.8 Allergy status to other drugs, medicaments and biological substances; Z95.5 Presence of coronary angioplasty implant and graft; Z79.84 Long term (current) use of oral hypoglycemic drugs; Z79.82 Long term (current) use of aspirin; I25.2 Old myocardial infarction; F32.9 Major depressive disorder, single episode, unspecified; I10 Essential (primary) hypertension; F17.200 Nicotine dependence, unspecified, uncomplicated; E61.1 Iron deficiency; J98.11 Atelectasis; I70.0 Atherosclerosis of aorta
CPT/HCPCS: 36415; 71250-TC; 80048-TC; 80053-TC; 80061-TC; 82247-TC; 82248-TC; 82728-TC; 82962-TC; 83540-TC; 83735-TC; 84100-TC; 84443-TC; 84484-TC; 85025-TC; 85610-TC; 85730-TC; 87070-TC; 87081-TC; 93307-TC; A4606; A6402; J0330; J1100; J1815; J2405; J2543; J2704; J3475; J3490; J7030; J7042; J7050; J7060; J7070; Q9967; Z7610